=== PATIENT | female | born 1945 | race Caucasian/White ===

== ENCOUNTER → 2017-03-29 | Outpatient (CLI) | payer MEDICARE ==
[~2017-03-29] MED LIST: ALBU8.5H5 INH; AMIT50TA PO; CARI350T14 PO; HYDR-3307 PO; MORP30TA14 PO; Oxygen INH; PARO20TA98 PO; PRAV10TA2 PO; RANI150T4 PO; VERA180T PO; nebulizer INH
== END ==
LOC: CFH 12:20
PROVIDERS: ATTEND Internal Medicine
DX: J84.9 Interstitial pulmonary disease, unspecified (principal); I70.0 Atherosclerosis of aorta; J44.9 Chronic obstructive pulmonary disease, unspecified
CPT/HCPCS: 71250

== ENCOUNTER → 2017-09-14 | Outpatient (CLI) | payer MEDICARE | END | disposition home or self-care (01) | LOC: CVU 14:05 | PROVIDERS: ATTEND Internal Medicine Cardiovascular Disease | DX: I65.23 Occlusion and stenosis of bilateral carotid arteries (principal); E78.5 Hyperlipidemia, unspecified; I10 Essential (primary) hypertension | CPT/HCPCS: 93880 ==

== ENCOUNTER 2018-11-22 14:27 | Outpatient (CLI) | payer MEDICARE | END 2018-11-22 23:59 | disposition home or self-care (01) | LOC: CFH 14:27 | PROVIDERS: ATTEND Internal Medicine Cardiovascular Disease | DX: I08.1 Rheumatic disorders of both mitral and tricuspid valves (principal) | CPT/HCPCS: 93306 ==

== ENCOUNTER 2020-03-02 04:23 | Emergency (ER) | payer MEDICARE ==
[~2020-03-02] VITALS: Ht 165.1 cm; Wt 87.3 kg
[~2020-03-02 04:23] MED LIST changes: +HYDR-3246 PO; -HYDR-3307 PO
[2020-03-02] MEDS ORDERED: LIDOCAINE-MPF 1%, 5ML ONE (04:54)
[2020-03-02] MEDS ORDERED: LIDOCAINE-MPF 1%, 5ML INFIL ONE (05:00)
[2020-03-02] MEDS ORDERED: L.E.T SOLUTION TP ONE ×2 (05:00→05:13)
--- NOTE | 2020-03-02 05:20 | NUR ---
LET applied per PA request. Pt aware of POC. Supplies for suture repair at bedside. at bedside. Call light in reach.
[2020-03-02] MEDS ORDERED: ONDANSETRON 2MG/ML, 2ML ONE (05:46)
[2020-03-02] MEDS ORDERED: MORPHINE SULFATE 4 MG/ML, 1ML ONE (05:47)
--- NOTE | 2020-03-02 05:57 | NUR ---
Provider at bedside for suture repair. Pt with increased pain. Pt medicated per MAR. Additional supplies provided at bedside. No further needs expressed. Call light in reach.
[2020-03-02] MEDS ORDERED: ONDANSETRON 2MG/ML, 2ML IVPush ONE (06:00)
[2020-03-02] MEDS ORDERED: MORPHINE SULFATE 4 MG/ML, 1ML IVPush PRN (06:00)
[2020-03-02 07:30] VITALS: BP 135/67
== END 2020-03-02 07:37 | disposition home or self-care (01) ==
LOC: ED 07:25
DX: S06.0X0A Concussion without loss of consciousness, initial encounter (principal); S01.81XA Laceration without foreign body of other part of head, initial encounter; S01.01XA Laceration without foreign body of scalp, initial encounter; J44.9 Chronic obstructive pulmonary disease, unspecified; W01.198A Fall on same level from slipping, tripping and stumbling with subsequent striking against other object, initial encounter; Y93.89 Activity, other specified; Y92.009 Unspecified place in unspecified non-institutional (private) residence as the place of occurrence of the external cause; Y99.8 Other external cause status
CPT/HCPCS: 12016; 96374; 96375; 99284; J2270; J2405

== ENCOUNTER → 2020-06-18 | Outpatient (CLI) | payer MEDICARE ==
[~2020-06-18] MED LIST changes: +CARI-389 PO; -CARI350T14 PO; -HYDR-3246 PO; +HYDR-3248 PO
== END | disposition home or self-care (01) ==
LOC: CVU 08:59
PROVIDERS: ATTEND Internal Medicine Cardiovascular Disease
DX: I08.3 Combined rheumatic disorders of mitral, aortic and tricuspid valves (principal); I27.20 Pulmonary hypertension, unspecified; R06.02 Shortness of breath
CPT/HCPCS: 93306

== ENCOUNTER → 2020-09-02 | Outpatient (CLI) | payer MEDICARE | END | disposition home or self-care (01) | LOC: CVU 13:05 | PROVIDERS: ATTEND Physician Assistant Medical | DX: I65.23 Occlusion and stenosis of bilateral carotid arteries (principal); I65.8 Occlusion and stenosis of other precerebral arteries | CPT/HCPCS: 93880 ==

== ENCOUNTER → 2020-12-04 | Outpatient (CLI) | payer MEDICARE ==
[~2020-12-04] MED LIST changes: +OMNIPAQUE 350 MG/ML, 100ML BOTTLE ONE
== END | disposition home or self-care (01) ==
LOC: CFH 14:22
PROVIDERS: ATTEND Surgery
DX: I65.23 Occlusion and stenosis of bilateral carotid arteries (principal)
CPT/HCPCS: 70496; 70498; 82565; Q9967